=== PATIENT | male | born 1980 | race Caucasian/White ===

== ENCOUNTER 2021-10-25 13:56 | Emergency (ER) | payer SELFPAY ==
[2021-10-25 14:01] VITALS: BP 156/89; PULSE 77; RESP 16; TEMP 36.4; O2SAT 99; BMI 22.4
--- NOTE | 2021-10-25 14:43 | ED_ITS ---
Documented by User: TREVER Ashton 10/25/21 16:47 HPI - Abdominal Pain General: Chief Complaint: Abdominal Pain Stated Complaint: ABD pain Time Seen by Provider: 10/25/21 14:18 History of Present Illness: Patient complains about intermittent right lower quadrant pain over the last month. Patient has a history of this same pain and is been diagnosed UTI x2. Patient denies any nausea vomiting and diarrhea or lack of bowel movements. Does have some burning on discharge occasionally. Has admitted to past recreational drug use with methamphetamines. Patient states he has no problems with pain medication. Patient denies any fever or chills. Associated Symptoms: Reports dysuria; Denies chills, fever(s), nausea and vomiting Review of Systems Const: Denies: fever(s), chills or body aches Eyes: Denies: eye discomfort ENMT: Denies: throat pain Card: Denies: chest pain Resp: Denies: dyspnea GI: Reports: abdominal pain (Hurts right lower quadrant x1 month intermittently.); Denies: nausea or vomiting : Reports: dysuria Skin/Breast: Denies: rash Neuro: Denies: headache(s) Psych: Denies: depression or suicidal ideation PFSH ED PFSH: Social History Smoking and tobacco status: current every day smoker Physical Exam Const: COMMON NORMALS: no acute distress, patient oriented x3 and alert HENMT: COMMON NORMALS: normocephalic and external ears normal HEAD & SCALP: normocephalic EXTERNAL EAR: Yes external ears normal Eye: COMMON NORMALS: EOMs intact bilaterally Neck/C-Spine: COMMON NORMALS: no JVD Resp: COMMON NORMALS: normal respiratory effort and No use of accessory muscles Cardio: COMMON NORMALS: no JVD GI: INSPECTION: Yes normal to inspection AUSCULTATION: Yes normoactive bowel sounds PALPATION: Yes Tenderness to palpation present (GI) Details: RLQ Extremity: COMMON NORMALS: normal to inspection and full ROM Neuro: COMMON NORMALS: patient oriented x3 SENSORIUM/ORIENTATION: Yes alert Psych: COMMON NORMALS: mental status grossly normal Skin: COMMON NORMALS: no rashes or lesions noted GENERAL SKIN EXAM: no rashes or lesions noted Course Vital Signs: Vital signs: Vital Signs Temperature 97.5 F L 10/25/21 14:01 Pulse Rate 90 10/25/21 14:52 Respiratory Rate 18 10/25/21 14:52 Blood Pressure 150/89 10/25/21 14:52 Pulse Oximetry 97 10/25/21 14:52 MDM - Abdominal Pain Medical Decision Making Patient refused IV CAT scan laboratory work. Said he has a problem with this treating him for the last 20 years and he then will get started to have needles again he has refused having needles in his arm. Advised patient to needed test done to rule out other causes abdominal pain. He says he did not want that right now like to just treat his discomfort and then he will follow up if worsening symptoms. Patient most likely has an abdominal strain based on symptoms. Lab Data Labs/Radiology: Laboratory Results Urine Color Yellow (Yellow) 10/25/21 14:50 Urine Appearance Clear (CLEAR) 10/25/21 14:50 Urine pH 5 (5-7) 10/25/21 14:50 Ur Specific [place] 1.030 (1.005-1.030) 10/25/21 14:50 Urine Protein Neg (Negative) 10/25/21 14:50 Urine Glucose (UA) Norm (Normal) 10/25/21 14:50 Urine Ketones Negative (Negative) 10/25/21 14:50 Urine Blood Neg (Negative) 10/25/21 14:50 Urine Nitrate Negative (Negative) 10/25/21 14:50 Urine Bilirubin Neg (Negative) 10/25/21 14:50 Urine Urobilinogen Neg mg/dL (Negative) 10/25/21 14:50 Ur Leukocyte Esterase Negative (Negative) 10/25/21 14:50 Discharge Plan Discharge Patient Disposition: Home Clinical Impression: Abdominal pain Condition: Stable Prescriptions: New Celebrex 100 mg capsule 100 mg PO BID Qty: 20 0RF No Action clindamycin HCl 300 mg capsule 300 mg PO TID 7 Days Qty: 21 0RF ketorolac 10 mg tablet 10 mg PO TID PRN (Reason: pain) 5 Days Qty: 15 0RF Discharge Orders: Discharge ED (Routine); Ordered 10/25/21 Ordered By: Dio Escamilla Referrals: Primo Aquino MD [Primary Care Provider] - Discharge Diet: Usual diet Discharge Activity: Increase activity as tolerated Patient Instructions: Abdominal Pain (ED) Activity Restrictions/Additional Instructions: Follow-up with medical provider as directed. Take medications as prescribed. Return to the ER or your medical provider if condition worsens. Please read and understand discharge instructions. If any questions ask please. Coding Level of Care Code ED Remote Encoding Operations Supervisor for [facility] Fwd Exam Comprehensive Documented by User: Jamal Jerez DO 10/26/21 07:03 HPI - Abdominal Pain General: Chief Complaint: Abdominal Pain Stated Complaint: ABD pain Time Seen by Provider: 10/25/21 14:18 PFSH ED PFSH: Social History Smoking and tobacco status: current every day smoker Course Vital Signs: Vital signs: Vital Signs Temperature 97.5 F L 10/25/21 14:01 Pulse Rate 90 10/25/21 14:52 Respiratory Rate 18 10/25/21 14:52 Blood Pressure 150/89 10/25/21 14:52 Pulse Oximetry 97 10/25/21 14:52 MDM - Abdominal Pain Medical Decision Making Patient refused IV CAT scan laboratory work. Said he has a problem with this treating him for the last 20 years and he then will get started to have needles again he has refused having needles in his arm. Advised patient to needed test done to rule out other causes abdominal pain. He says he did not want [facility] now like to just treat his discomfort and then he will follow up if worsening symptoms. Patient most likely has an abdominal strain based on symptoms. Chart reviewed and patient discussed with midlevel. Agree with assessment and plan. Lab Data Labs/Radiology: Laboratory Results Urine Color Yellow (Yellow) 10/25/21 14:50 Urine Appearance Clear (CLEAR) 10/25/21 14:50 Urine pH 5 (5-7) 10/25/21 14:50 Ur Specific [place] 1.030 (1.005-1.030) 10/25/21 14:50 Urine Protein Neg (Negative) 10/25/21 14:50 Urine Glucose (UA) Norm (Normal) 10/25/21 14:50 Urine Ketones Negative (Negative) 10/25/21 14:50 Urine Blood Neg (Negative) 10/25/21 14:50 Urine Nitrate Negative (Negative) 10/25/21 14:50 Urine Bilirubin Neg (Negative) 10/25/21 14:50 Urine Urobilinogen Neg mg/dL (Negative) 10/25/21 14:50 Ur Leukocyte Esterase Negative (Negative) 10/25/21 14:50 Discharge Plan Discharge Patient Disposition: Home Clinical Impression: Abdominal pain Condition: Stable Prescriptions: New Celebrex 100 mg capsule 100 mg PO BID Qty: 20 0RF No Action clindamycin HCl 300 mg capsule 300 mg PO TID 7 Days Qty: 21 0RF ketorolac 10 mg tablet 10 mg PO TID PRN (Reason: pain) 5 Days Qty: 15 0RF Discharge Orders: Discharge ED (Routine); Ordered 10/25/21 Ordered By: Dio Escamilla Referrals: Primo Aquino MD [Primary Care Provider] - Discharge Diet: Usual diet Discharge Activity: Increase activity as tolerated Patient Instructions: Abdominal Pain (ED) Activity Restrictions/Additional Instructions: Follow-up with medical provider as directed. Take medications as prescribed. Return to the ER or your medical provider if condition worsens. Please read and understand discharge instructions. If any questions ask please. Coding Level of Care Code ED Remote Encoding Operations Supervisor for [place] Fwd Exam Comprehensive
[2021-10-25 14:52] VITALS: BP 150/89; PULSE 90; RESP 18; O2SAT 97
[2021-10-25 15:20] LABS: Add Urine Microscopic? NO; Charge for UA Resulting for Rev
[2021-10-25 15:38] LABS: Bilirubin Urine Neg (Negative); Blood Urine Neg (Negative); Glucose Urine UA Norm (Normal); Ketones Urine Negative (Negative); Leukocyte Esterase Urine Negative (Negative); Nitrate Urine Negative (Negative); Protein Urine Neg (Negative); Urine Appearance Clear (CLEAR); Urine Color Yellow (Yellow); Urobilinogen Urine Neg (Negative); pH Urine 5 (5-7)
[2021-10-25] MEDS: ketorolac 60 mg/2 mL INJ IM (15:53)
== END 2021-10-25 16:10 | disposition home or self-care (01) ==
PROVIDERS: Emergency Provider Nurse Practitioner Family; PCP Family Medicine
DX: R10.9 Unspecified abdominal pain (principal); F17.210 Nicotine dependence, cigarettes, uncomplicated
CPT/HCPCS: 81003; 87491; 87591; 96372; 99283; J1885